=== PATIENT | male | born 1995 | race African-American/Black ===

== ENCOUNTER 2018-09-11 23:21 | Emergency (ER) | payer OTHER, BC ==
[~2018-09-11] VITALS: Ht 182.9 cm; Wt 78.0 kg
[2018-09-11 23:24] VITALS: Ht 182.9 cm; Wt 78.0 kg
[2018-09-12] MEDS ORDERED: SOD CHLORIDE 0.9% 100 ML ONE (00:10)
[2018-09-12] MEDS ORDERED: IOHEXOL 300MG/ML 150 ML BTL ONE (00:10)
[2018-09-12] MEDS ORDERED: morphine 4 MG/ML VIAL IV STA (00:14)
[2018-09-12] MEDS ORDERED: ONDANSETRON 4 MG INJ IV STA (00:14)
[2018-09-12] MEDS ORDERED: NAPR-985 PO (01:53)
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
[2018-09-12 03:09] VITALS: BP 119/66; PULSE 70; RESP 16
== END 2018-09-12 06:42 | disposition home or self-care (01) ==
LOC: E/R 23:21
DX: M54.2 Cervicalgia (principal); R51 Headache; R07.89 Other chest pain
CPT/HCPCS: 70450; 71260; 72125; 74177; 80048; 85025; 86850; 86900; 86901; 96374; 96375; 99285; J2270; J2405; Q9967